=== PATIENT | female | born 1960 | race Caucasian/White ===

== ENCOUNTER 2017-02-13 12:13 | Emergency (ER) | payer OTHER ==
[2017-02-13 12:46] LABS: HCT 34.8 % (37.0-47.0); HGB 10.7 g/dl (12.5-16.0); MCH 28.2 pg (25.0-31.0); MCHC 30.7 g/dL (32.0-36.0); MCV 91.6 fL (78.0-100.0); MPV 9.3 fL (6.0-9.5); RBC 3.8 M/uL (4.20-5.40)
[2017-02-13 12:55] LABS: LACTIC ACID 5.3 mmol/L (0.5-2.2)
[2017-02-13 12:58] LABS: CREATININE 1.2 mg/dL (0.5-1.0); POTASSIUM 4.8 mmol/L (3.5-5.1); WBC 44.5 K/uL (4.0-10.5)
== END 2017-02-13 16:20 | disposition other institution (70) ==
LOC: FER 12:13
PROVIDERS: Internal Medicine
DX: I50.9 Heart failure, unspecified (principal); C79.82 Secondary malignant neoplasm of genital organs; K21.9 Gastro-esophageal reflux disease without esophagitis; Z90.49 Acquired absence of other specified parts of digestive tract; Z90.710 Acquired absence of both cervix and uterus
CPT/HCPCS: 36415; 36600; 71010; 80048; 82803; 83605; 84484; 87040; 93005